=== PATIENT | male | born 1970 ===

== ENCOUNTER 2018-01-01 09:52 | Day surgery (SDC) | payer OTHER ==
[2017-11-29 14:04] VITALS: BMI 32.1
[2018-01-01] MEDS ORDERED: (Novolin R) Insulin Human Regular 100 units/ml vial SC ONE (10:40)
[2018-01-01] MEDS ORDERED: Midazolam 2 MG/2 ML VIAL ONE (13:43)
[2018-01-01] MEDS ORDERED: Propofol 10 mg/ml Inj (20 ML) ONE (13:43)
[2018-01-01] MEDS ORDERED: ceFAZolin IV 1 gm in Dextrose 1 GM/50 ML BAG IVPB ONE (14:01)
[2018-01-01] MEDS ORDERED: Lidocaine Hydrochloride 10 ML INJ ONE (14:12)
[2018-01-01] MEDS ORDERED: Bupivacaine 0.25% 20 ML INJ IJ ONE (14:13)
[2018-01-01] MEDS ORDERED: Bacitracin Ointment 30 GM TUBE ONE (14:13)
--- NOTE | 2018-01-01 15:03 | PCM.SURG1 ---
Surgeon's Initial Post Op Note - Surgeon's Notes Surgeon: Ricardo Field Investigator: canelo Type of Anesthesia: General LMA Anesthesia Administered By: staff Pre-Operative Diagnosis: Phimosis/Balanopostitis Operative Findings: same Post-Operative Diagnosis: same Operation Performed: circumcision Specimen/Specimens Removed: foreskin Estimated Blood Loss: EBL {In ML}: 5 Blood Products Given: N/A Drains Used: No Drains Post-Op Condition: Good Date of Surgery/Procedure: 01/01/18 Time of Surgery/Procedure: 15:02
[2018-01-01] MEDS ORDERED: HYDROmorphone 0.5 mg/0.5 ml ISec IVP PRN (15:05)
[2018-01-01 16:24] VITALS: RESP 16
[2018-01-01] MEDS ORDERED: (Novolin R) Insulin Human Regular 100 units/ml vial SC SCH (16:30)
[2018-01-01 17:23] VITALS: BP 143/84; PULSE 87; TEMP 97.8; O2SAT 97
--- NOTE | 2018-01-02 01:52 | OP ---
PROCEDURE DATE: 01/01/2018 PREOPERATIVE DIAGNOSIS: Phimosis and diabetic balanoposthitis. POSTOPERATIVE DIAGNOSIS: Phimosis and diabetic balanoposthitis. PROCEDURE: Circumcision. FINDINGS: Phimotic foreskin with significant inflammation. DESCRIPTION OF PROCEDURE: As follows: Prior to the procedure, a detailed informed consent was obtained from the patient. He is aware of the risks and complications of circumcision surgery and the alternatives to circumcision. He is aware of the special risks because of his diabetes. He was brought to the operating room and a time-out was taken according to the rules and regulations of [facility] (Formerly [facility]). The penis was prepped in the normal manner. The foreskin could not be forcibly retracted, so a dorsal slit was made, and the foreskin was forcibly retracted. The interior and exterior foreskin were further prepped. A circumferential incision made around the exterior and interior of the foreskin, and they were connected in a modified sleeve fashion, thus amputating the foreskin. The cut areas were inspected for bleeding, and they were cauterized with the Bovie cautery until meticulous hemostasis was achieved. The cut edges were then reapproximated with 3-0 chromic sutures in a discontinuous fashion and excellent cosmetic result ensued. The patient tolerated the procedure well. A dry sterile dressing was placed on the penis after infiltrating the cash-incisional areas with 1% Marcaine solution. Efraín Silva MD
== END 2018-01-01 17:00 | disposition home or self-care (01) ==
LOC: C.SDS 09:52
PROVIDERS: ATTEND Urology
DX: N47.1 Phimosis (principal); E11.69 Type 2 diabetes mellitus with other specified complication; N47.6 Balanoposthitis
CPT/HCPCS: 54161; 82948; J0690; J2250; J2704; J3010